=== PATIENT | male | born 1980 ===

== ENCOUNTER 2019-08-04 17:29 | Emergency (ER) | payer OTHER ==
[2019-08-04] MEDS ORDERED: Ondansetron ODT TAB* 4 MG PO ONE ×2 (18:27→19:07)
--- NOTE | 2019-08-04 18:57 | UC ---
Abdominal Pain Male HPI - HPI Summary HPI Summary: michel presents to urgent care with reports of nausea vomiting diarrhea since noon. Patient states last night he had [employer] on his stomach did not feel well through the night but no vomiting. Patient states that around noon he had some vegetables. Patient states they were better did not taste well. Patient states within 30 minutes he was vomiting. Patient states he's also had multiple episodes of runny diarrhea. No blood no black. Patient's who had the same food is having the same symptoms. Patient denies fevers or chills. No chest pain or shortness of breath. States he gets sweaty with before he has a bowel movement but then resolves. Patient reports mild abdominal cramping Achilles with diarrhea. No dysuria. Patient's medications reviewed this visit. 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 Onset/Duration: Sudden Onset Severity Initially: Mild Severity Currently: Mild Pain Intensity: 3 Pain Scale Used: 0-10 Numeric - Allergies/Home Medications Allergies/Adverse Reactions: Allergies Allergy/AdvReac Type Severity Reaction Status Date / Time No Known Allergies Allergy Verified 08/04/19 17:58 PMH/Surg Hx/FS Hx/Imm Hx Previously Healthy: Yes - Surgical History Surgical History: None - Family History Known Family History: Positive: Non-Contributory - Social History Occupation: Employed Full-time Lives: Alone Alcohol Use: None Substance Use Type: None Smoking Status (MU): Never Smoked Tobacco Review of Systems All Other Systems Reviewed And Are Negative: Yes Constitutional: Positive: Negative Eyes: Positive: Negative Respiratory: Positive: Negative Gastrointestinal: Positive: Vomiting, Diarrhea, Nausea Genitourinary: Positive: Negative Motor: Positive: Negative Is Patient Immunocompromised?: No Physical Exam - Summary Physical Exam Summary: Vital Signs Reviewed: Yes A+Ox3, nauseous Eyes: Conjunctiva Clear, BOBY. EOM intact and full ENT: Hearing grossly normal TM x 2 clear, mmoist, uvula midline, no exudate, no erythema Neck: Positive: Supple Respiratory: Positive: No respiratory distress, No accessory muscle use + CTA throughout no w/r Cardiovascular: RRR nl s1, s2 no m/r CBT <2 sec abd soft + BS nt/nd no guarding, no distension Musculoskeletal Exam: ROSAS x 4 without difficulty Strength Intact, ROM Intact Neurological: Positive: Alert, + sensation throughout Psychological: Positive: Normal Response To mattress spring encaser Skin: Positive: no rash, no ecchymosis Triage Information Reviewed: Yes Vital Signs: Initial Vital Signs Temp 98.4 F 08/04/19 17:51 Pulse 81 08/04/19 17:51 Resp 16 08/04/19 17:51 BP 139/91 08/04/19 17:51 Pulse Ox 98 08/04/19 17:51 Abd Pain Male Course/Dx - Course Course Of Treatment: Patient presents with nausea vomiting diarrhea that started after eating some vegetables that did not taste right. Patient states his stomach was already unsettle as he had [employer] last night. Patient has has nausea but has been unable to make himself vomit. Patient states he's had multiple episodes of loose stools nonbloody nonblack. Patient states she has a cramping it's relieved with a bowel movement. No fevers or chills he's feels sweaty with before a bowel movement. Patient vital signs are stable. Patient appears to be nauseous. Patient's exam is otherwise non-concerning. I offered patient IV with Pepcid Zofran and fluids. Alternately effort patient Zofran ODT. Patient here is here accompanied by his and 2 young children. Patient states elected to try ODT him go home. I long conversation with patient encouraging symptoms worsen he's unable to stay hydrated or he has fevers or uncontrolled pain usually emergency department. Patient states understanding agreement with plan. Pharmacist and closed. Patient with Zofran dispense him urgent care. - Differential Dx/Clinical Impression Provider Diagnosis: Nausea & vomiting, Diarrhea Discharge ED - Sign-Out/Discharge Documenting (check all that apply): Patient Departure All imaging exams completed and their final reports reviewed: No Studies - Discharge Plan Condition: Stable Disposition: HOME Prescriptions: Ondansetron ODT TAB* [Zofran 4 MG Odt TAB*] 4 mg PO Q4H PRN #10 tab.odt PRN Reason: Nausea Patient Education Materials: Acute Nausea and Vomiting (ED), Acute Diarrhea (ED ) Referrals: [facility]ERR[facility] [Outside] No Primary Care Phys,NOPCP [Primary Care Provider] - Additional Instructions: - Okay to take medication as prescribed for nausea - For the first 6 hours, eat and drink clears (water, siddhartha juan david, soup broth, jello, popsicles, Gatorade). If you tolerate this okay, add bland foods such as dry toast, scrambled eggs, crackers. Wait until you are feeling better for 24 hours before eating spicy food, acidic food, tomato based food, fried food. - Okay to take spicy foods, acidic food - Okay take tums, pepto-bismol, or rolaids for stomach acid - If you develop uncontrolled vomiting or fever, abdominal pain, or ANY other concerns it is recommended you go to the emergency department at the hospital for further evaluation and treatment - Billing Disposition and Condition Condition: STABLE Disposition: Home
== END 2019-08-04 19:13 | disposition home or self-care (01) ==
LOC: UCEAST 17:29
DX: R11.2 Nausea with vomiting, unspecified (principal); R19.7 Diarrhea, unspecified
CPT/HCPCS: 99202; A9270-GY; G0463